=== PATIENT | male | born 1935 | race Caucasian/White ===

== ENCOUNTER 2019-08-12 23:26 | Emergency (ER) | payer MEDICARE, BC ==
[2019-08-12 23:51] VITALS: BP 147/96; PULSE 83
--- NOTE | 2019-08-13 00:49 | EDM.PDOC ---
ED HPI GENERAL MEDICAL PROBLEM - General Chief Complaint: ENT Problem Stated Complaint: EAR ACHE Time Seen by Provider: 08/13/19 00:05 Source of Information: Reports: Patient History Limitations: Reports: No Limitations - History of Present Illness INITIAL COMMENTS - FREE TEXT/NARRATIVE: 83 yo presents with concerns of bleeding from the left ear. Reports that he had several days of muffled hearing in the ear - he thought that his hearing aid wasn't functioning. This evening he had a sense of discomfort in the ear, began rubbing it when he noticed a sensation of intense pain and started to bleed from the ear. The pain was relatively brief and has now subsided. He has otherwise been feeling well - no earache, fever, sinus congestion. No trauma to the ear. 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 He does endorse loss of hearing on the left side. Left Ear Pain Score (Numeric/FACES): 2 - Related Data Allergies Allergy/AdvReac Type Severity Reaction Status Date / Time No Known Allergies Allergy Verified 08/24/18 07:28 Home Meds: Home Meds Aspirin [Halfprin] 81 mg PO DAILY 09/05/16 [History] Calcium Carbonate/Vitamin D3 [Calcium 500 + Vit D Caplet] 1 tab PO DAILY [History] Desonide 1 applic TP BID PRN 09/05/16 [History] Fish Oil/[place]-3 Fatty Acids [Fish Oil] 1 tab PO DAILY 09/05/16 [History] Gluc 2KCl/Chondr/Rosy Hy/Hy Ac [Glucosamine & Chondroitin Cap] 1 tab PO DAILY [History] Ibuprofen/Diphenhydramine Cit [Advil Pm Caplet] 1 tab PO BEDTIME PRN 09/05/16 [ History] Lovastatin [Mevacor] 40 mg PO WDIN 09/05/16 [History] Multivit-Min/FA/Lycopene/Lut [Centrum Silver Tablet] 1 tab PO DAILY 09/05/16 [ History] Nitroglycerin [Nitrostat] 0.4 mg SL ASDIRECTED PRN 09/05/16 [History] Omeprazole 40 mg PO DAILY 09/05/16 [History] Ubidecarenone [Co Q-10] 200 mg PO DAILY 09/05/16 [History] Vitamin E 400 unit PO DAILY 09/05/16 [History] Alclometasone Dipropionate 1 applic TOP BID 08/22/18 [History] Amoxicillin/Potassium Clav [Augmentin 875-125 Tablet] 1 each PO BID #20 tablet 08/13/19 [Rx] Past Medical History HEENT History: Reports: Cataract 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 Gastrointestinal History: Reports: Chronic Diarrhea Genitourinary History: Reports: None Musculoskeletal History: Reports: Other (See Below) Other Musculoskeletal History: bilteral shoulder pain Oncologic (Cancer) History: Reports: Prostate Dermatologic History: Reports: Other (See Below) Other Dermatologic History: pre ca - Infectious Disease History Infectious Disease History: Reports: Chicken Pox, Mumps - Past Surgical History GI Surgical History: Reports: Hernia Repair/Other Musculoskeletal Surgical History: Reports: None Social & Family History - Tobacco Use Smoking Status *Q: Never Smoker - Caffeine Use Caffeine Use: Reports: Coffee Caffeine Use Comment: 4-5 cups per day - Alcohol Use Days Per Week of Alcohol Use: 7 Number of Drinks Per Day: 3 Total Drinks Per Week: 21 - Recreational Drug Use Recreational Drug Use: No ED ROS ENT - Review of Systems Review Of Systems: See Below Constitutional: Reports: No Symptoms HEENT: Reports: Ear Discharge, Ear Pain Respiratory: Reports: No Symptoms Cardiovascular: Reports: No Symptoms Endocrine: Reports: No Symptoms GI/Abdominal: Reports: No Symptoms : Reports: No Symptoms Musculoskeletal: Reports: No Symptoms Skin: Reports: No Symptoms Neurological: Reports: No Symptoms Psychiatric: Reports: No Symptoms Hematologic/Lymphatic: Reports: No Symptoms Immunologic: Reports: No Symptoms ED EXAM, ENT - Physical Exam Exam: See Below Exam Limited By: No Limitations General Appearance: Alert, No Apparent Distress Ears: Normal External Exam, Hearing Loss (near total loss on the left side), TM Perforation, Other (irrigated blood clots and fibrinous material out of the canal, exposing a perforated TM on the left side). No: Auricular Tenderness, Mastoid Swelling, Mastoid Tenderness Nose: Normal Inspection Mouth/Throat: Normal Inspection Head: Atraumatic, Normocephalic Neck: Normal Inspection Respiratory/Chest: No Respiratory Distress Cardiovascular: Regular Rate, Rhythm GI/Abdominal: Soft, No Distention Extremities: Normal Inspection Neurological: Alert, Oriented Psychiatric: Normal Affect, Normal Mood Skin: Warm, Dry Course - Vital Signs Last Recorded V/S: Last Vital Signs Temp 36.9 C 08/12/19 23:45 Pulse 83 08/12/19 23:45 Resp 16 08/12/19 23:45 BP 147/96 H 08/12/19 23:45 Pulse Ox 96 08/12/19 23:45 - Re-Assessments/Exams Free Text/Narrative Re-Assessment/Exam: 83 yo presents with transient pain and bleeding from the left ear. Left external ear canal occluded with clotted blood. This was irrigated and removed along with fibrinous material which ultimately exposed a perforated TM. History is possibly consistent with middle ear infection (diminished hearing over the last several days) which perhaps lead to rupture. Otherwise in the absence of trauma the etiology of this is unclear. We are starting him on antibiotic, will do PO for the concern of precipitating OM (augmentin). He will follow up closely with PCP this week. Instructed to keep the ear dry, return to the ER for pain or fevers. 08/13/19 01:01 Departure - Departure Time of Disposition: 00:47 Disposition: Home, Self-Care 01 Clinical Impression: Tympanic membrane perforation Qualifiers: Laterality: left Qualified Code(s): H72.92 - Unspecified perforation of tympanic membrane, left ear - Discharge Information *PRESCRIPTION DRUG MONITORING PROGRAM REVIEWED*: No *COPY OF PRESCRIPTION DRUG MONITORING REPORT IN PATIENT MARILEE: No Instructions: Eardrum Perforation, [id number] Referrals: Ivan Huang MD [Primary Care Provider] - Forms: ED Department Discharge Additional Instructions: Please take the prescribed antibiotic. Follow-up with your primary doctor this week. See a doctor if you develop increasing fever or pain in the ear.
[2019-08-13] MEDS ORDERED: Amoxicillin/Clavulanate K 875-125 MG Tab PO ONE (00:52)
== END 2019-08-13 00:57 | disposition home or self-care (01) ==
LOC: JP.ED 23:26
DX: H72.92 Unspecified perforation of tympanic membrane, left ear (principal); Z79.82 Long term (current) use of aspirin; Z79.899 Other long term (current) drug therapy
CPT/HCPCS: 99282; A9270; 99283

== ENCOUNTER 2023-12-07 15:53 | Emergency (ER) | payer MEDICARE ==
[2023-12-07 17:54] VITALS: BP 174/77; PULSE 67
[2023-12-07 18:30] LABS: APPEARANCE,URINE SLIGHTLY CLOUDY (CLEAR); BILIRUBIN,URINE NEGATIVE (NEGATIVE); COLOR,URINE YELLOW (YELLOW); GLUCOSE,URINE NEGATIVE (NEGATIVE); KETONES,URINE NEGATIVE (NEGATIVE); LEUKOCYTE ESTERASE,URINE NEGATIVE (NEGATIVE); NITRITE,URINE NEGATIVE (NEGATIVE); OCCULT BLOOD,URINE MODERATE (NEGATIVE); PH,URINE 6.5 (5.0-8.0); PROTEIN,URINE NEGATIVE (NEGATIVE)
[2023-12-07 18:34] LABS: AMORPHOUS SEDIMENT,URINE NOT SEEN; BACTERIA,URINE RARE; EPITHELIAL CELLS,URINE RARE; MUCUS,URINE NOT SEEN; RBC,URINE 75-100 (0-5); WBC,URINE 0-5 (0-5)
[2023-12-07 19:08] LABS: BASOPHILS ABSOLUTE AUTO 0.04 K/uL (0.00-0.10); BASOPHILS PERCENT AUTO 0.5 % (0.1-1.3); EOSINOPHILS ABSOLUTE AUTO 0.17 K/uL (0.00-0.40); HEMATOCRIT 34.3 % (38.4-49.7); HEMOGLOBIN 11.8 g/dL (12.9-16.9); IMMATURE GRAN ABSOLUTE AUTO 0.05 K/uL (0.00-0.23); IMMATURE GRAN PERCENT AUTO 0.6 % (0.0-0.7); LYMPHOCYTES ABSOLUTE AUTO 1.63 K/uL (0.8-3.3); LYMPHOCYTES PERCENT AUTO 18.8 % (11.4-47.7); MEAN CORPUSCULAR HEMOGLOBIN 32.9 pg (31.6-35.5); MEAN CORPUSCULAR HGB CONC 34.4 g/dL (31.6-35.5); MEAN CORPUSCULAR VOLUME 95.5 fL (81.4-99.0); MONOCYTES PERCENT AUTO 9.2 % (3.3-12.6); NEUTROPHILS ABSOLUTE AUTO 5.98 K/uL (1.0-7.6); NEUTROPHILS PERCENT AUTO 68.9 % (40.0-78.1); PLATELET COUNT,PLT 222 K/uL (130-375); RED BLOOD CELL COUNT 3.59 M/uL (4.14-5.76); WHITE BLOOD CELL COUNT,WBC 8.7 K/uL (3.2-11.0)
== END 2023-12-07 19:25 | disposition home or self-care (01) ==
LOC: JP.ED 15:58
DX: R31.9 Hematuria, unspecified (principal); I10 Essential (primary) hypertension; E78.00 Pure hypercholesterolemia, unspecified; Z95.1 Presence of aortocoronary bypass graft; Z79.899 Other long term (current) drug therapy; Z79.82 Long term (current) use of aspirin
CPT/HCPCS: 36415; 81001; 85025; 99283